=== PATIENT | female | born 1970 | race Caucasian/White ===

== ENCOUNTER 2019-01-25 23:43 | Emergency (ER) | payer MEDICAID ==
[~2019-01-25] VITALS: Ht 152.4 cm; Wt 60.7 kg
[~2019-01-25 23:43] MED LIST: AMOX1TAB10 PO; GUAI120S25 PO; HYDR-3498 PO; IBUP-1542 PO
[2019-01-25 23:49] VITALS: Ht 152.4 cm; Wt 60.7 kg
[2019-01-26] MEDS ORDERED: KETOROLAC 60 MG INJ IM STA (03:57)
[2019-01-26] MEDS ORDERED: PROMETHAZINE/DM (CUP) PO ONE ×2 (04:00→04:30)
[2019-01-26] MEDS ORDERED: DEXAMETHASONE 10 MG/ML 1 ML INJ IM ONE (04:00)
[2019-01-26] MEDS ORDERED: CETI10TA19 PO (05:57)
[2019-01-26] MEDS ORDERED: D-ME473S2 PO (05:57)
[2019-01-26] MEDS ORDERED: PRED20TA PO (05:57)
[2019-01-26 06:08] VITALS: BP 97/49; PULSE 66; RESP 17
--- NOTE | 2019-01-26 06:54 | ERD ---
ER Documentation Chief Complaint Chief Complaint ST and bilateral ear pain x 2 days HPI History of Present Illness: 48-year-old female with no known past medical history coming in today with spouse due to complaint of sore throat and ear pain that has been present for 3 days. Associated symptoms include cough and nasal congestion. At home pharmacological/nonpharmacological treatment for symptoms: Denies Denies social concerns; Denies recent foreign travel ROS All systems reviewed and are negative except as per history of present illness. Medications Home Meds Active Scripts Dextromethorphan Hb-Promethazine Hcl* (Promethazine DM* Syrup) 473 Ml Syrup, 5 ML PO Q6 PRN for COUGH, #90 ML Prov:RENITA SEYMOUR NP 01/26/19 Cetirizine Hcl* (Cetirizine Hcl*) 10 Mg Tablet, 10 MG PO DAILY for COUGH/RUNNY NOSE/ALLERGIES, #30 TAB Prov:RENITA SEYMOUR NP 01/26/19 Prednisone* (Prednisone*) 20 Mg Tab, 40 MG PO DAILY for THROAT INFLAMMATIO for 4 Days, TAB Prov:RENITA SEYMOUR NP 01/26/19 Sgfagnjkxbi-I-Vnwrukjkwq Hb* (Guaifenesin* DM Syrup) 120 Ml Syrup, 10 ML PO Q4H PRN for COUGH, #120 ML Prov:JOSE SALAZAR PA-C 08/22/16 Ibuprofen* (Motrin*) 600 Mg Tab, 600 MG PO Q6, #30 TAB Prov:JOSE SALAZAR PA-C 08/22/16 Amoxicillin/Potassium Clav (Amox-Clav 875-125 mg Tablet) 875-125 mg Tab, 1 TAB PO BID for 5 Days, #14 TAB Prov:JOSE SALAZAR PA-C 08/22/16 Ibuprofen* (Motrin*) 600 Mg Tab, 600 MG PO Q8, #30 TAB 0 Refills Prov:SOHEILA LAWTON PA-C 01/17/16 Hydrocodone Bit-Acetaminophen* ([place]*) 5-325 Mg Tab, 1 TAB PO Q6 PRN for PAIN, #14 TAB Prov:TEJINDER PRESCOTT MD 06/14/15 Ibuprofen* (Motrin*) 600 Mg Tab, 600 MG PO Q6, #20 TAB Prov:TEJINDER PRESCOTT MD 06/14/15 Allergies Allergies: Coded Allergies: No Known Allergies (Verified Allergy, Mild, 06/14/15) PMhx/Soc History of Surgery: Yes (tubal ligation, breast implants) Anesthesia Reaction: No Hx Neurological Disorder: No Hx Respiratory Disorders: No Hx Cardiac Disorders: No Hx Psychiatric Problems: No Hx Miscellaneous Medical Probl: No Hx Alcohol Use: No Hx Substance Use: No Hx Tobacco Use: Yes Smoking Status: Current every day smoker FmHx Family History: No diabetes, No coronary disease Physical Exam Vitals Vital Signs Date Temp Pulse Resp B/P (MAP) Pulse Ox O2 O2 Flow FiO2 Time Delivery Rate 01/26/19 97.8 66 17 97/49 (65) 100 Room Air 06:08 01/25/19 98.6 74 16 121/57 98 23:49 (78) Physical Exam Const: No acute distress Head: Atraumatic Eyes: Normal Conjunctiva ENT: No erythema noted to tympanic membranes bilaterally, no redness, no bulging, no perforation. Erythematous pharynx, 2+ tonsils, positive tonsillar exudate. Neck: Full range of motion. No meningismus. Resp: Clear to auscultation bilaterally Cardio: Regular rate and rhythm, no murmurs Abd: Soft, non tender, non distended. Normal bowel sounds Skin: No petechiae or rashes Back: No midline or flank tenderness Ext: No cyanosis, or edema Neur: Awake and alert Psych: Normal Mood and Affect Results 24 hrs Laboratory Tests Test 01/26/19 04:16 POC Beta HCG, Qualitative NEGATIVE Current Medications Medications Dose Sig/Rhea Start Time Status Last (Trade) Ordered Route PRN Stop Time Admin Dose Reason Admin Ketorolac 60 mg ONCE STAT 01/26/19 DC 01/26/19 Tromethamine IM 03:57 04:22 (Toradol) 01/26/19 04:00 Promethazine 5 ml ONCE ONCE 01/26/19 Cancel HCl/ PO 04:00 Dextromethorp 01/26/19 04:01 may (Phenergan-Dm ) 10 mg ONCE ONCE 01/26/19 DC 01/26/19 Dexamethasone IM 04:00 04:22 (Decadron) 01/26/19 04:01 Promethazine 5 ml ONCE ONCE 01/26/19 DC 01/26/19 HCl/ PO 04:30 04:23 Dextromethorp 01/26/19 04:31 amy (Phenergan-Dm ) Procedures/MDM ED course includes a thorough examination and history. Medications: Dexamethasone and ketorolac and dextromethorphan/promethazine cough syrup/antihistamine Imaging: --- Labs: Rapid strep, POC Low suspicion for life-threatening medical emergency. Low suspicion for infectious emergency that requires hospitalization or immediate surgical intervention. Low suspicion for HEENT T emergency that requires hospitalization or immediate surgical intervention. No indications for antibiotics at this time. Otherwise healthy patient presenting with constellation of symptoms likely representing uncomplicated pharyngitis/ear pain as characterized by history, physical exam findings, lab findings.. Rapid strep negative. POC negative. No respiratory distress, otherwise relatively well appearing and nontoxic. Patient educated on diagnoses, prescriptions, follow-up care, return precautions. Strict return precautions given for worsening condition; questions answered discharge. Disposition for discharge with followup in 2 days with PCP/clinic. Departure Diagnosis: Primary Impression: Pharyngitis, acute Pharyngitis/tonsillitis etiology: unspecified etiology Qualified Codes: J02.9 - Acute pharyngitis, unspecified Additional Impression: Ear pain Laterality: bilateral Qualified Codes: H92.03 - Otalgia, bilateral Condition: Stable Patient Instructions: Earache W/O Infection (Adult), Pharyngitis, Viral Referrals: [facility] YOU HAVE RECEIVED A MEDICAL SCREENING EXAM AND THE RESULTS INDICATE THAT YOU DO NOT HAVE A CONDITION THAT REQUIRES URGENT TREATMENT IN THE EMERGENCY DEPARTMENT. FURTHER EVALUATION AND TREATMENT OF YOUR CONDITION CAN WAIT UNTIL YOU ARE SEEN IN YOUR DOCTORS OFFICE WITHIN THE NEXT 1-2 DAYS. IT IS YOUR RESPONSIBILITY TO MAKE AN APPOINTMENT FOR FOLOW-UP CARE. IF YOU HAVE A PRIMARY DOCTOR --you should call your primary doctor and schedule an appointment IF YOU DO NOT HAVE A PRIMARY DOCTOR YOU CAN CALL OUR PHYSICIAN REFERRAL HOTLINE AT IF YOU CAN NOT AFFORD TO SEE A PHYSICIAN YOU CAN CHOSE FROM THE FOLLOWING [facility] CLINICS [facility] [address] [facility] [address] [facility] [facility] [address] [facility] [address] [facility] [address] [facility]. [facility] [address] [facility]. [facility] YOU HAVE RECEIVED A MEDICAL SCREENING EXAM AND THE RESULTS INDICATE THAT YOU DO NOT HAVE A CONDITION THAT REQUIRES URGENT TREATMENT IN THE EMERGENCY DEPARTMENT. FURTHER EVALUATION AND TREATMENT OF YOUR CONDITION CAN WAIT UNTIL YOU ARE SEEN IN YOUR DOCTORS OFFICE WITHIN THE NEXT 1-2 DAYS. IT IS YOUR RESPONSIBILITY TO MAKE AN APPOINTMENT FOR FOLOW-UP CARE. IF YOU HAVE A PRIMARY DOCTOR --you should call your primary doctor and schedule and appointment IF YOU DO NOT HAVE A PRIMARY DOCTOR YOU CAN CALL OUR PHYSICIAN REFERRAL HOTLINE AT . IF YOU CAN NOT AFFORD TO SEE A PHYSICIAN YOU CAN CHOSE FROM THE FOLLOWING [facility] INSTITUTIONS: [facility] [id number] [place] [address] [facility] [address] [place] [address] [facility] [address] [place] [address] Additional Instructions: Thank you very much for allowing us to participate in your care. Your health and safety is our top priority at [facility]. It is important to read all discharge instructions and education provided in your discharge packet. Your rapid strep screen which tests for a bacteria called Streptococcus IS negative. You do not currently need antibiotics. This appears to be a viral infection. Call your primary care doctor TOMORROW for an appointment during the next 2-4 days and bring all the information and medications prescribed. Have prescriptions filled and follow precisely the directions on the label. -Prednisone is a steroid, which decreases inflammation; uses medication every morning with breakfast to decrease inflammation associated with your throat and ears -Cetirizine as an antihistamine that should not cause drowsiness; take this medication every day for allergy-like symptoms/cough/runny nose. -Dextromethorphan/promethazine is a antihistamine mix with cough suppressant; take this medication as prescribed for allergy-like symptoms and cough. This medication may make you drowsy. If the symptoms get worse and your provider is unavailable, return to the Emergency Department immediately. RENITA SEYMOUR NP Jan 26, 2019 06:54
== END 2019-01-26 06:10 | disposition home or self-care (01) ==
LOC: FTE 23:43
DX: J02.9 Acute pharyngitis, unspecified (principal); H92.03 Otalgia, bilateral; F17.210 Nicotine dependence, cigarettes, uncomplicated
CPT/HCPCS: 81025; 87880; 96372; J1100; J1885; Z7502; Z7610